=== PATIENT | female | born 1985 | race Asian ===

== ENCOUNTER 2019-01-09 20:03 | Emergency (ER) | payer BC, OTHER ==
[~2019-01-09] VITALS: Ht 157.5 cm; Wt 68.2 kg
[2019-01-09] MEDS ORDERED: normal saline 1000ML IV soln IVB ONE (20:10)
[2019-01-09] MEDS ORDERED: charcoal, activated 50 GM/240 ML bottle PO ONE (20:20)
--- NOTE | 2019-01-09 20:21 | NUR ---
Poison control contacted and report to expect GI irriation, nausea, and vomiting and provide supportive care. She requests tylenol level, ASA level, CMP, urine drug screen, etoh level, and urine test with a repeat of CMP in 4-[address] Bo notified of recommendations.
[2019-01-09 20:28] LABS: BASOPHILS % (AUTO) 0.6 % (0-1); EOSINOPHILS % (AUTO) 0.5 % (0-6); HEMATOCRIT 36.5 % (35.0-45.0); HEMOGLOBIN 12.6 g/dl (12.0-16.0); LYMPHOCYTES # (AUTO) 2.3 X10'3 (1.1-4.8); LYMPHOCYTES % (AUTO) 32.5 % (21-51); MEAN CORPUSCULAR HEMOGLOBIN 29.1 PG (27.0-31.0); MEAN CORPUSCULAR HGB CONC 34.5 g/dL (33.0-36.5); MEAN CORPUSCULAR VOLUME 84.2 FL (78-98); MEAN PLATELET VOLUME 8.7 FL (7.4-10.4); MONOCYTES # (AUTO) 0.5 X10'3 (0-0.9); MONOCYTES % (AUTO) 7.1 % (2-12); NEUTROPHILS # (AUTO) 4.2 X10'3 (1.8-7.7); NEUTROPHILS % (AUTO) 59.3 % (42-75); PLATELET COUNT 233 X10'3 (140-440); RED BLOOD COUNT 4.34 X10'6 (4.20-5.60); RED CELL DISTRIBUTION WIDTH 12.6 % (11.5-14.5); WHITE BLOOD COUNT 7.1 X10'3 (4.5-11.0)
[2019-01-09 20:42] LABS: ALANINE AMINOTRANSFERASE 11 U/L (12-78); ALBUMIN 4.1 G/DL (3.4-5.0); ALBUMIN/GLOBULIN RATIO 1.3 (1.1-1.5); ALKALINE PHOSPHATASE 63 IU/L (46-116); ANION GAP 13 (8-16); ASPARTATE AMINO TRANSFERASE 10 U/L (10-37); BILIRUBIN,TOTAL 0.2 MG/DL (0.1-1.0); BLOOD UREA NITROGEN 11 MG/DL (7-18); BUN/CREATININE RATIO 13.4 (6.6-38.0); CHLORIDE 106 MMOL/L (99-107); CREATININE 0.82 MG/DL (0.40-0.90); ETHANOL < 0.010 GM/DL (0.0-0.010); GLUCOSE 119 MG/DL (70-104); POTASSIUM 3.6 MMOL/L (3.5-5.1); SODIUM 140 MMOL/L (135-145); TOTAL PROTEIN 7.2 G/DL (6.4-8.2); eGFR 81 ML/MIN
[2019-01-09 20:53] LABS: URINE HCG NEGATIVE (NEG)
[2019-01-09 20:54] LABS: CLARITY,URINE CLEAR (Clear); COLOR,URINE YELLOW (Yellow); GLUCOSE, URINE NEGATIVE (Neg); KETONES,URINE 15 mg/dl (Neg); LEUKOCYTE ESTERASE ,URINE NEGATIVE (Neg); NITRITES, URINE NEGATIVE (Neg); OCCULT BLOOD,URINE NEGATIVE (Neg); PROTEIN,URINE NEGATIVE (Neg); UROBILINOGEN,URINE 0.2 E.U/dL (0.2-1.0)
[2019-01-09 21:02] LABS: UA COLLECTION TYPE STRAIGHT CATH
[2019-01-09 21:05] LABS: ACETAMINOPHEN 14.2 UG/ML (10-30)
[2019-01-09 21:14] LABS: URINE AMPHETAMINE SCREEN NEGATIVE (Neg); URINE BARBITUATE SCREEN NEGATIVE (Neg); URINE BENZODIAZEPINES SCREEN NEGATIVE (Neg); URINE CANNABINOID SCREEN NEGATIVE (Neg); URINE COCAINE SCREEN NEGATIVE (Neg); URINE METHADONE SCREEN NEGATIVE (Neg); URINE OPIATE SCREEN NEGATIVE (Neg); URINE PHENCYCLIDINE SCREEN NEGATIVE (Neg)
--- NOTE | 2019-01-09 23:00 | NUR ---
SPOKE TO POISON CONTROL. WANTED 4 HR REPEATS OF ACET, CMP, LFTS. IF LFTS WNL, ACIDOSIS IS DECREASING THEN NO MORE POISON CONTROL CONSULT NEEDED
--- NOTE | 2019-01-09 23:39 | NUR ---
pt is speaking to calmly who is siting at bedside.
--- NOTE | 2019-01-10 01:11 | NUR ---
call wes stevens at [phone] with any changes
[2019-01-10 01:12] LABS: ACETAMINOPHEN 2.4 UG/ML (10-30); ALANINE AMINOTRANSFERASE 17 U/L (12-78); ALBUMIN 3.7 G/DL (3.4-5.0); ALBUMIN/GLOBULIN RATIO 1.1 (1.1-1.5); ALKALINE PHOSPHATASE 56 IU/L (46-116); ANION GAP 12 (8-16); ASPARTATE AMINO TRANSFERASE 10 U/L (10-37); BILIRUBIN,TOTAL 0.2 MG/DL (0.1-1.0); BLOOD UREA NITROGEN 8 MG/DL (7-18); BUN/CREATININE RATIO 10.8 (6.6-38.0); CALCIUM 8.4 MG/DL (8.5-10.1); CHLORIDE 106 MMOL/L (99-107); CREATININE 0.74 MG/DL (0.40-0.90); GLUCOSE 110 MG/DL (70-104); POTASSIUM 3.5 MMOL/L (3.5-5.1); SODIUM 140 MMOL/L (135-145); TOTAL CARBON DIOXIDE 22.4 MMOL/L (24-32); TOTAL PROTEIN 7.2 G/DL (6.4-8.2); eGFR > 90 ML/MIN
--- NOTE | 2019-01-10 02:03 | NUR ---
Pt transferred from ED4 via WC by STEVEN Hall to [facility] and placed in green scrubs. Belongings list completed by STEVEN Hackett. Pt affirms she was attempting to hurt herself. She states, "I feel so stupid now. I really let my kids down. So much has been going on. I use to be able to distract myself, but this time it was too much. I'm really sorry for what I did." Explain to pt she was on a 1799 hold and would undergo a psychosocial assessment in the morning, indicating placement in a PHF would be sought if the hold was converted to a 5150. Pt verbalized understanding.
[2019-01-10 05:45] VITALS: BP 101/48
--- NOTE | 2019-01-10 05:58 | NUR ---
Evie, Poison Control called f/u on labs. Data provided; case closed.
--- NOTE | 2019-01-10 08:23 | NUR ---
Patietn awake and eating breakfast. at bedside. Calm and cooperative.
--- NOTE | 2019-01-10 10:00 | NUR ---
The patient is lying in bed, taking phone calls and on/off taling with at bedside.
== END 2019-01-10 13:46 | disposition home or self-care (01) ==
LOC: ER 20:04
DX: T14.91XA Suicide attempt, initial encounter (principal); T39.312A Poisoning by propionic acid derivatives, intentional self-harm, initial encounter; Y93.89 Activity, other specified; Y92.89 Other specified places as the place of occurrence of the external cause; Y99.8 Other external cause status
CPT/HCPCS: 36415; 71045; 80053; 80305; 80320; 80329; 81003; 81025; 84443; 85025; 93005; 99284; J7030